=== PATIENT | female | born 1980 | race Caucasian/White ===

== ENCOUNTER → 2024-05-30 | Outpatient (CLI) | payer BC, SELFPAY ==
--- NOTE | 2024-05-30 | XR_ITS ---
Examination: Transvaginal ultrasound of the pelvis, complete Technique: Transvaginal sonographic images pelvis performed using [facility]le[facility]an scale imaging Exam date and time: May 30, 2024 1228 hours INDICATIONS: Onset pelvic pain beginning 2 weeks ago FINDINGS: Uterus 10.3 x 5.4 x 6.3 cm Endometrial stripe 3.1 cm No uterine mass or intrauterine gestation Right ovary 5.6 x 6.5 cm arterial flow, 4.6 x 4.4 x 4.4 cm cyst Left ovary 2.5 x 1.3 x 1.7 cm arterial flow IMPRESSION: Simple right ovarian cyst 4.4 x 4.6 x 4.4 cm.
--- NOTE | 2024-05-30 | XR_ITS ---
Examination: Abdomen sonogram, complete Date and time of exam: May 30, 2024 1216 hours INDICATIONS: Upper abdominal pain and swelling beginning 2 weeks ago TECHNIQUE: Multiple real-time grayscale transabdominal sonographic images abdomen FINDINGS: Normal gallbladder Normal common bile duct 0.4 cm Pancreatic head 1.5 cm Aorta not enlarged Liver 14.4 cm fatty infiltration smooth contour no focal liver lesions Normal hepatopedal portal venous flow Patent IVC Right kidney 11.6 x 5.6 x 5.3 cm cortex 1.6 cm Left kidney 10.0 x 5.1 x 4.4 cm cortex 2.5 cm No hydronephrosis or renal calculi Spleen 11.0 cm IMPRESSION: Normal gallbladder Fatty liver no focal liver lesions.
[2024-05-30 13:31] LABS: Basophils % (Auto) 0 % (0-2.5); Eosinophils # (Auto) 0.1 Thou/mm3 (0.0-0.5); Eosinophils % (Auto) 1 % (0-10); Hematocrit 38.2 % (36.0-46.0); Immature Granulocytes % (Auto) 0 % (0-0); Immature Granulocytes Auto 0.02 Thou/mm3 (0.00-0.00); Lymphocytes # (Auto) 2.3 Thou/mm3 (1.0-4.8); Lymphocytes % (Auto) 25 % (10-50); Mean Corpuscular Hemoglobin 29.7 pg (25.0-35.0); Mean Corpuscular Volume 87 fL (80-100); Monocytes # (Auto) 0.5 Thou/mm3 (0.0-0.8); Monocytes % (Auto) 6 % (0-12); Neutrophils # (Auto) 6.1 Thou/mm3 (1.8-7.7); Neutrophils % (Auto) 67 % (37-80); Nucleated Red Blood Cell % 0 /100 WBC (0); Platelet Count 270 Thou/mm3 (140-440); Red Blood Count 4.38 Miln/mm3 (4.00-5.20); White Blood Count 9.1 Thou/mm3 (3.6-11.0)
[2024-05-30 13:42] LABS: Glucose Estimated Average 108 mg/dL (80-131); Hemoglobin A1C 5.4 % Hgb (4.8-6.0)
[2024-05-30 13:53] LABS: Alanine Aminotransferase 23 U/L (10-49); Albumin, Serum 4.6 gm/dL (3.5-5.0); Albumin/Globulin Ratio 1.8 (1.2-2.2); Alkaline Phosphatase 62 U/L (46-116); Amylase 57 U/L (30-118); Anion Gap 9 (7-16); Aspartate Amino Transferase 19 U/L (0-34); BUN/Creatinine Ratio 16 Ratio (12-20); Bilirubin,Total 0.6 mg/dL (0.3-1.2); Blood Urea Nitrogen 13 mg/dL (9-23); Calcium 9.9 mg/dL (8.3-10.6); Calcium (Corrected) 9.9 mg/dL (8.5-10.1); Carbon Dioxide 26.9 mMol/L (20.0-31.0); Cardiac Risk Estimate 3.7 RATIO (3.7-5.6); Chloride 103 mMol/L (98-107); Cholesterol 217 mg/dL (132-200); Creatinine (Component) 0.8 mg/dL (0.6-1.3); Free T4 (Free Thyroxine) 1.03 ng/dL (0.89-1.76); Globulin 2.5 gm/dL (2.3-3.5); Glucose 102 mg/dL (74-106); HDL Cholesterol 58 mg/dL (40-60); LDL Cholesterol,Calculated 140 mg/dL (0-130); Lipase 44 U/L (12-53); Osmolality,Calculated 277 (275-295); Potassium 3.9 mMol/L (3.4-5.1); Sodium 139 mMol/L (136-145); Thyroid Stimulating Hormone 2.78 uIU/mL (0.55-4.78); Total Protein 7.1 gm/dL (5.7-8.2); Triglycerides 96 mg/dL (30-150); eGFR > 60 See Note
[2024-05-30 14:06] LABS: Vitamin D 25 Hydroxy Total 27.2 ng/mL (7.3-40.2)
== END | disposition home or self-care (01) ==
LOC: COPL 10:58
PROVIDERS: PCP Internal Medicine; Referring Provider Internal Medicine; Visit Provider Radiology Diagnostic Radiology
DX: K76.0 Fatty (change of) liver, not elsewhere classified (principal); N83.291 Other ovarian cyst, right side; Z00.00 Encounter for general adult medical examination without abnormal findings; E55.9 Vitamin D deficiency, unspecified
CPT/HCPCS: 36415; 76700; 76830; 80053; 80061; 82150; 82306; 83036; 83690; 84439; 84443; 85025; 86304